=== PATIENT | male | born 1985 | race Caucasian/White ===

== ENCOUNTER 2016-07-24 09:37 | Emergency (ER) | payer MEDICARE, MEDICAID ==
[2016-07-24 11:43] LABS: CHLORIDE,CL 103 mmol/L (98-107); SODIUM,NA 141 mmol/L (136-145)
[2016-07-24] MEDS ORDERED: Prochlorperazine 10 MG/2 ML SDV IM ONE (11:55)
--- NOTE | 2016-08-03 23:53 | ER ---
Date of Service: 07/24/2016 SUBJECTIVE: Dale presents to the emergency room with cough and chest congestion. The patient was diagnosed with pneumonia approximately 4 days prior before presenting to the emergency room. He was seen by Dr. Asa Escalante, was started on Levaquin. The morning of arrival to the emergency room, the patient's mother states that he did throw up and he did spike a fever of 101.5. She stated that his cough has been more prevalent and he has been coughing up some phlegm, which he has been swallowing. The patient does have severe mental disability and is nonverbal, which makes assessment and communication with the patient quite difficult for his family and health care team. PAST MEDICAL HISTORY: 1. 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 3. Osteopenia. 4. Acne vulgaris. 5. Developmental delay and mental retardation. MEDICATIONS: 1. Levaquin 500 mg p.o. q.24 hours. 2. Prolia. 3. MiraLAX. 4. Multivitamin. 5. Calcium carbonate. 6. Vitamin D3. 7. Baum Milk of Magnesia. 8. Alprazolam. ALLERGIES: Sulfa and penicillin. REVIEW OF SYSTEMS: Unobtainable. PHYSICAL EXAMINATION: General: This is a 31-year-old male patient, no acute distress. Vital Signs: On arrival, blood pressure was 119/76, pulse rate is 86, temperature is 36.6, respiratory rate is 20, O2 saturations 96%. Skin: Warm, pink, and dry. HEENT: Head is normocephalic, atraumatic. Eyes, PERRLA. Extraocular movements are intact. Mouth, oral mucosa is moist. No erythema or exudate noted on hypopharynx. Neck: Supple. No masses. There is no lymphadenopathy. Lungs: Diminished with rhonchi in the mid lung motley. He is coughing in the examination room. Heart: Regular rate and rhythm. Abdomen: Soft and nontender. There is no hepatosplenomegaly noted. There is no masses noted. Extremities: Without edema. Neurologic: The patient is alert and behaving as his parents would expect. He not does not appear to be experiencing any decreased level of consciousness according to his family. Portable chest x-ray was obtained. He does have evidence of a right middle and lower lobe infiltrate. LABORATORY DATA: CBC was obtained, was all noted to be within normal limits. PT is 11.0, INR is 1.0. Chemistry; sodium is 141, potassium is 4.2, chloride is 103, bicarb is 28, BUN is 13, creatinine 0.8. GFR is greater than 60. Glucose is 103, lactic acid is 1.2. Calcium is 9.4, corrected calcium is 9.72, total bilirubin is 0.6, AST is 37, ALT is 36, alkaline phosphatase is 63, total protein is 7.6, albumin is 3.6. ASSESSMENT: Healthcare acquired pneumonia. PLAN: The patient does not meet admission criteria at this time. We will have him continue with Levaquin at its current dose. I did write him a prescription for some Phenergan with codeine to help with this cough. I discussed findings with the patient's family. All questions were answered. They are to return if the patient develops any decreased level of consciousness, increased confusion, dyspnea, or other worrisome signs or symptoms. All questions were answered. MWK: 08/03/2016 16:14:13 MODL: 08/03/2016 23:46:22 /[id number]
== END 2016-07-24 12:07 | disposition home or self-care (01) ==
LOC: VM.ED 09:37
DX: J18.9 Pneumonia, unspecified organism (principal); Y95 Nosocomial condition; Z79.899 Other long term (current) drug therapy; Z88.2 Allergy status to sulfonamides; Z88.0 Allergy status to penicillin
CPT/HCPCS: 36415; 71010; 80053; 83605; 85025; 85610; 96372; 99283; J0780